=== PATIENT | female | born 1990 | race Caucasian/White ===

== ENCOUNTER 2019-11-17 09:31 | Emergency (ER) | payer BC, OTHER, SELFPAY ==
[2019-11-17 09:36] VITALS: BP 110/51; PULSE 71; RESP 16; TEMP 36.5; O2SAT 99; BMI 20.7
--- NOTE | 2019-11-17 09:37 | USR_ITS ---
PROCEDURE INFORMATION: Exam: US First Trimester, Transabdominal and US , Transvaginal Exam date and time: 11/17/2019 11:04 AM Age: 29 years old Clinical indication: Lmp or gestational age (in weeks): Lmp 11-14-19; Other: Bleeding; ; Additional info: Bleeding, 7 weeks TECHNIQUE: Imaging protocol: Real-time transabdominal obstetrical ultrasound of the maternal pelvis and a first trimester , less than 14 weeks 0 days, with image documentation. Transvaginal imaging was used for better evaluation of the fetus and adnexa. COMPARISON: No relevant prior studies available. FINDINGS: GESTATION: Gestation: There is an intrauterine gestation. Gestational age as measured by crown-rump length is 6 weeks 3 days. No cardiac activity is identified on this exam. Differential diagnosis includes very early intrauterine versus demise. A normal-appearing yolk sac is identified. Right adnexa: There is a 2.2 cm complex right ovarian cyst. Left adnexa: Unremarkable. US/US OB <=14 wk fetus w transvag IMPRESSION: 1. There is an intrauterine gestation. Gestational age as measured by crown-rump length is 6 weeks 3 days. No cardiac activity is identified on this exam. Differential diagnosis includes very early intrauterine versus demise. Followup serial beta hCGs and ultrasound is recommended. 2. There is a 2.2 cm complex right ovarian cyst. Followup imaging is recommended.
--- NOTE | 2019-11-17 09:37 | ED_ITS ---
HPI - General Adult General: Chief complaint: Vaginal Bleeding Stated complaint: 7 weeks and bleeding, patient comes in for spotting starting last night. Patient has had 1 previous with delivery. No reports of previous miscarriage. Patient is tearful on exam. Patient reports that bleeding is light with no clots. Patient did have a little pelvic discomfort last night. Dr. Chang is OB Time Seen by Provider: 11/17/19 09:37 Review of Systems General: Reports: 10 or more systems reviewed and unremarkable except in HPI and below : Reports: vaginal bleeding (light, 7 weeks ) PFSH ED PFSH: Statuses (acute, chronic, etc) shown below reflect problem list status as previously entered and may not be historically accurate Social History Smoking and tobacco status: never smoked Physical Exam Const: COMMON NORMALS: no apparent distress and oriented x3 GENERAL APPEARANCE: cooperative HENMT: COMMON NORMALS: normocephalic, external ears normal, EAC's normal, TM's normal bilaterally and external nose normal HEAD & SCALP: normal to inspection and normocephalic FACE & SINUS: normal facial exam NOSE: external nose normal GENERAL EAR: hearing grossly impaired EXTERNAL EAR: Yes external ears normal EXTERNAL AUDITORY CANAL: EAC's normal TYMPANIC MEMBRANE: TM's normal bilaterally MOUTH: oral and palatal mucosa normal THROAT: posterior oropharynx normal Eye: COMMON NORMALS: PERRL and EOMs intact bilaterally PUPIL: Yes PERRL Neck/C-Spine: COMMON NORMALS: full ROM and no lymphadenopathy Lymph: LYMPHATIC: no lymphedema noted Chest: COMMONS NORMALS: inspection of chest normal and palpation of chest normal Resp: COMMON NORMALS: normal respiratory effort and clear to auscultation bilaterally AUSCULTATION: clear to auscultation bilaterally Cardio: COMMON NORMALS: regular rate and regular rhythm RATE: regular rate RHYTHM: regular rhythm GI: COMMON NORMALS: normal to inspection, nondistended, normoactive bowel sounds and non-tender : COMMON NORMALS: Yes no CVA tenderness BLADDER/KIDNEY EXAM: Yes no CVA tenderness Back/Pelvis: COMMON NORMALS: no CVA tenderness and thoracic and lumbar spine normal to inspection Extremity: COMMON NORMALS: normal to inspection GENERAL: No edema Neuro: COMMON NORMALS: oriented x3, moves all extremities and no focal motor deficits Psych: COMMON NORMALS: mental status grossly normal and cooperative Skin: COMMON NORMALS: no rashes or lesions noted GENERAL SKIN EXAM: no rashes or lesions noted Course Vital Signs: Vital signs: Vital Signs Temperature 97.7 F 11/17/19 09:36 Pulse Rate 65 11/17/19 11:13 Respiratory Rate 26 H 11/17/19 11:13 Blood Pressure 110/48 11/17/19 11:13 Pulse Oximetry 96 11/17/19 11:13 MDM - General Adult MDM Narrative: Medical decision making narrative: Patient comes in today for spotting. Patient appears well. Patient appears in no acute distress. Abdomen soft with some mild tenderness in the pelvic area. Differential diagnosis includes spontaneous , threatened , UTI, renal colic. Urinalysis was clear for infection. CBC CMP were normal. ABO typing was positive. US noted implantation of yolk sac at 6 weeks, no HR noted, may be age related. Reviewed exam with patient recommend follow-up with Dr. Chang for repeat labs and further treatment. Patient reports understanding agreed to plan. Lab Data: Labs: Lab Results 11/17/19 11/17/19 11/17/19 Range/Units 09:49 09:56 09:56 WBC 5.2 (4.0-10.0) 10^3/ uL RBC 4.73 (4.1-5.3) 10^6/u L Hgb 14.3 (11.5-15.3) g/dL Hct 42.8 (37.0-47.0) % MCV 90.5 (81-99) fL MCH 30.2 (28.0-34.0) pg MCHC 33.4 (30.0-36.0) g/dL RDW 11.7 L (12.1-15.1) % Plt Count 227 (130-400) 10^3/c mm MPV 9.8 (7.4-10.4) fL Neut % (Auto) 68.2 % Lymph % (Auto) 22.5 % Hart % (Auto) 6.0 % Eos % (Auto) 2.1 % Baso % (Auto) 0.8 % Neut # (Auto) 3.5 (1.8-7.7) 10^3/u L Lymph # (Auto) 1.2 (0.8-4.8) 10^3/u L Hart # (Auto) 0.3 (0.2-0.9) 10^3/u L Eos # (Auto) 0.1 (0.0-0.8) 10^3/u L Baso # (Auto) 0.0 (0.0-0.1) 10^3/u L Nucleated RBC % (a uto) 0 % Nucleated RBCs # 0.0 /100WBC Sodium 138 (136-145) mmol/L Potassium 3.8 (3.5-5.1) mmol/L Chloride 102 (98-107) mmol/L Carbon Dioxide 26 (22-29) mmol/L Anion Gap 13.8 (5-19) BUN 8 (6-20) mg/dL Creatinine 0.7 (0.5-0.9) mg/dL GFR Calculation 99.6 (90-130) mL/min Glucose 101 (74-109) mg/dL Calcium 10.3 H (8.6-10.0) mg/Dl Total Bilirubin 0.5 (0.15-1.2) mg/dL AST 18 (0-32) U/L ALT 16 (0-33) U/L Alkaline Phosphata se 39 (35-105) IU/L Total Protein 6.9 (6.6-8.7) g/dL Albumin 5.7 H (3.5-5.2) g/dL Globulin 1.2 L (1.3-4.6) g/dL Ser , Chrissie i-Qnt 1719.00 mIU/mL Urine Color Yellow (Yellow) Urine Appearance Clear (CLEAR) Urine pH 7 (5-7) Ur Specific Gravit y 1.005 (1.005-1.030) Urine Protein Neg (Negative) Urine Glucose (UA) Norm (Normal) Urine Ketones Negative (Negative) Urine Occult Blood 3+ H (Negative) Urine Nitrate Negative (Negative) Urine Bilirubin Neg (NEGATIVE) Urine Urobilinogen Norm (Negative) mg/dL Ur Leukocyte Ariana ase Negative (Negative) Urine RBC 10-15 H (0-2) /hpf Urine WBC None (0-5) /hpf Ur Squamous Epith Cells 0-4 H (0-5) Urine Bacteria Trace (NONE) Blood Type 11/17/19 Range/Units 09:56 WBC (4.0-10.0) 10^3/ uL RBC (4.1-5.3) 10^6/u L Hgb (11.5-15.3) g/dL Hct (37.0-47.0) % MCV (81-99) fL MCH (28.0-34.0) pg MCHC (30.0-36.0) g/dL RDW (12.1-15.1) % Plt Count (130-400) 10^3/c mm MPV (7.4-10.4) fL Neut % (Auto) % Lymph % (Auto) % Hart % (Auto) % Eos % (Auto) % Baso % (Auto) % Neut # (Auto) (1.8-7.7) 10^3/u L Lymph # (Auto) (0.8-4.8) 10^3/u L Hart # (Auto) (0.2-0.9) 10^3/u L Eos # (Auto) (0.0-0.8) 10^3/u L Baso # (Auto) (0.0-0.1) 10^3/u L Nucleated RBC % (a uto) % Nucleated RBCs # /100WBC Sodium (136-145) mmol/L Potassium (3.5-5.1) mmol/L Chloride (98-107) mmol/L Carbon Dioxide (22-29) mmol/L Anion Gap (5-19) BUN (6-20) mg/dL Creatinine (0.5-0.9) mg/dL GFR Calculation (90-130) mL/min Glucose (74-109) mg/dL Calcium (8.6-10.0) mg/Dl Total Bilirubin (0.15-1.2) mg/dL AST (0-32) U/L ALT (0-33) U/L Alkaline Phosphata se (35-105) IU/L Total Protein (6.6-8.7) g/dL Albumin (3.5-5.2) g/dL Globulin (1.3-4.6) g/dL Ser , Chrissie i-Qnt mIU/mL Urine Color (Yellow) Urine Appearance (CLEAR) Urine pH (5-7) Ur Specific Gravit y (1.005-1.030) Urine Protein (Negative) Urine Glucose (UA) (Normal) Urine Ketones (Negative) Urine Occult Blood (Negative) Urine Nitrate (Negative) Urine Bilirubin (NEGATIVE) Urine Urobilinogen (Negative) mg/dL Ur Leukocyte Ariana ase (Negative) Urine RBC (0-2) /hpf Urine WBC (0-5) /hpf Ur Squamous Epith Cells (0-5) Urine Bacteria (NONE) Blood Type A Positive Discharge Plan Discharge Patient Disposition: Home, Self-Care Clinical Impression: Threatened Condition: Stable Prescriptions: No Action No Known Home Medications RF: 0 Discharge Orders: Discharge Order (Routine); Ordered 11/17/19 Ordered By: Vincenzo Souza Referrals: Varghese Pineda Jr, MD [Primary Care Provider] - Discharge Diet: Usual diet Discharge Activity: Limit activity as instructed Patient Instructions: Threatened , Abnormal Uterine Bleeding Activity Restrictions/Additional Instructions: Drink plenty of Water Acetaminophen as needed for pain Pelvic rest Follow-up with OB-CODE MACHINE OPERATOR office tomorrow for further treatment Continue vitamin Return to ER for bleeding greater than 1 pad in a hour, high fever, or new concerns Interventions: ED Discharge Assessment Last Done: 11/17/19 11:35 Stand Alone Forms: Work/School Release, Work/Release Restrictions Coding Level of Care Code ED Operating System Designer for Zeusg Fwd Exam Problem Focused
[2019-11-17 09:48] VITALS: BP 110/51; PULSE 63; RESP 17; O2SAT 99
--- NOTE | 2019-11-17 09:54 | PC.NURSE ---
Lab at bedside
[2019-11-17 10:08] LABS: Basophils % 0.8 %; Eosinophils # 0.1 10^3/uL (0.0-0.8); Eosinophils % 2.1 %; Hematocrit 42.8 % (37.0-47.0); Hemoglobin 14.3 g/dL (11.5-15.3); Lymphocytes # 1.2 10^3/uL (0.8-4.8); Lymphocytes % 22.5 %; Mean Corpuscular HGB Conc 33.4 g/dL (30.0-36.0); Mean Corpuscular Hemoglobin 30.2 pg (28.0-34.0); Mean Corpuscular Volume 90.5 fL (81-99); Mean Platelet Volume 9.8 fL (7.4-10.4); Monocytes # 0.3 10^3/uL (0.2-0.9); Neutrophils # 3.5 10^3/uL (1.8-7.7); Neutrophils % 68.2 %; Nucleated Red Blood Cells % 0 %; Platelet Count 227 10^3/cmm (130-400); Red Blood Count 4.73 10^6/uL (4.1-5.3); Red Cell Distribution Width 11.7 % (12.1-15.1); White Blood Count 5.2 10^3/uL (4.0-10.0)
[2019-11-17 10:17] LABS: Bilirubin Urine Neg (NEGATIVE); Blood Urine 3+ (Negative); Glucose Urine UA Norm (Normal); Ketones Urine Negative (Negative); Leukocyte Esterase Urine Negative (Negative); Nitrate Urine Negative (Negative); Protein Urine Neg (Negative); Specific Gravity, Urine 1.005 (1.005-1.030); Urine Appearance Clear (CLEAR); Urine Color Yellow (Yellow); Urobilinogen Urine Norm (Negative); pH Urine 7 (5-7)
[2019-11-17 10:19] LABS: Add Urine Culture? Yes; Bacteria Urine TRACE; Squamous Epithelial Cell Urine 0-4 (0-5)
[2019-11-17 10:34] LABS: Alanine Aminotransferase 16 U/L (0-33); Albumin Level 5.7 g/dL (3.5-5.2); Alkaline Phosphatase 39 IU/L (35-105); Anion Gap 13.8 (5-19); Aspartate Amino Transferase 18 U/L (0-32); Blood Urea Nitrogen 8 mg/dL (6-20); Calcium 10.3 mg/Dl (8.6-10.0); Carbon Dioxide 26 mmol/L (22-29); Chloride 102 mmol/L (98-107); Globulin 1.2 g/dL (1.3-4.6); Glomerular Filtration Rate 99.6 mL/min (90-130); Glucose 101 mg/dL (74-109); Potassium 3.8 mmol/L (3.5-5.1); Sodium 138 mmol/L (136-145); Total Bilirubin 0.5 mg/dL (0.15-1.2); Total Protein 6.9 g/dL (6.6-8.7)
--- NOTE | 2019-11-17 10:38 | PC.NURSE ---
US at bedside
[2019-11-17 11:13] VITALS: BP 110/48; PULSE 65; RESP 26; O2SAT 96
--- NOTE | 2019-11-17 11:15 | PC.NURSE ---
pt tearful at this time
[2019-11-17 11:35] VITALS: BP 110/48; PULSE 60; RESP 17; O2SAT 96
== END 2019-11-17 11:46 | disposition home or self-care (01) ==
PROVIDERS: Emergency Provider Nurse Practitioner Family; Family Provider Family Medicine; PCP Family Medicine
DX: O20.0 Threatened abortion (principal); Z3A.01 Less than 8 weeks gestation of pregnancy
CPT/HCPCS: 36415; 76801; 76817; 80053; 81001; 84702; 85025; 86900; 87086; 99282; A9270

== ENCOUNTER 2019-11-18 13:23 | Outpatient (REF) | payer SELFPAY | END 2019-11-18 13:24 | disposition home or self-care (01) | LOC: LAB 13:23 | PROVIDERS: Family Provider Family Medicine; PCP Family Medicine; Visit Provider Dermatology | DX: O20.0 Threatened abortion (principal) | CPT/HCPCS: 84702 ==

== ENCOUNTER 2020-08-24 15:49 | Outpatient (CLI) | payer BC, SELFPAY ==
--- NOTE | 2020-08-24 16:01 | USCV_ITS ---
Ronna Mcnair Age: 30 Gender: F : 1990 Exam Date: 08/24/2020 15:53 Ordering Phys: Katie Alfred MD Technologist: Brii Clemente [place] [facility] [place]ication: PAIN IN RT LEG PROCEDURES: Venous duplex imaging was performed in only the right lower extremity. The following venous structures were evaluated: common femoral vein, profunda vein, proximal portion of the greater saphenous vein, superficial femoral vein, and the popliteal vein. In addition, the posterior tibial and peroneal trunk were evaluated. Serial compression, augmentation maneuvers, and spectral Doppler flow evaluation were performed. FINDINGS: Normal 2-D Doppler and augmentation and compressibility throughout the lower extremity venous structures. Additional imaging through the proximal calf veins also reveals no thrombus. Limited evaluation of the greater saphenous vein is patent with no thrombus. CONCLUSIONS No DVT right lower extremity. Dr. Dana Magdaleno DO (Electronically Signed) Final Date: 25 August 2020 08:28 S
== END 2020-08-24 15:50 | disposition home or self-care (01) ==
LOC: RAD 15:55
PROVIDERS: PCP Family Medicine; Visit Provider Family Medicine
DX: M79.604 Pain in right leg (principal)
CPT/HCPCS: 93971

== ENCOUNTER → 2024-04-24 14:05 | Outpatient (BNVA) | payer OTHER, SELFPAY | PROVIDERS: PCP Family Medicine; Visit Provider Nurse Practitioner Women's Health | DX: Z12.4 Encounter for screening for malignant neoplasm of cervix (principal); I83.90 Asymptomatic varicose veins of unspecified lower extremity; Z01.419 Encounter for gynecological examination (general) (routine) without abnormal findings | CPT/HCPCS: 87624 ==

== ENCOUNTER → 2024-05-29 07:56 | Outpatient (BNVA) | payer OTHER, SELFPAY | PROVIDERS: PCP Family Medicine; Visit Provider Nurse Practitioner Women's Health | DX: N92.6 Irregular menstruation, unspecified (principal) | CPT/HCPCS: 81025; 84443; 84702 ==

== ENCOUNTER → 2024-06-05 14:18 | Outpatient (BNVA) | payer OTHER, SELFPAY | PROVIDERS: PCP Family Medicine; Visit Provider Nurse Practitioner Women's Health | DX: Z34.90 Encounter for supervision of normal pregnancy, unspecified, unspecified trimester (principal) | CPT/HCPCS: 76801 ==

== ENCOUNTER → 2024-06-19 08:28 | Outpatient (BNVA) | payer OTHER, SELFPAY | PROVIDERS: PCP Family Medicine; Visit Provider Nurse Practitioner Women's Health | DX: Z34.90 Encounter for supervision of normal pregnancy, unspecified, unspecified trimester (principal); Z34.80 Encounter for supervision of other normal pregnancy, unspecified trimester | CPT/HCPCS: 80307; 84315; 85025; 86592; 86762; 86803; 86850; 86900; 87086; 87340; 87806 ==

== ENCOUNTER → 2024-07-03 13:26 | Outpatient (BNVA) | payer OTHER, SELFPAY | PROVIDERS: PCP Family Medicine; Visit Provider Nurse Practitioner Women's Health | DX: O20.8 Other hemorrhage in early pregnancy (principal); Z3A.11 11 weeks gestation of pregnancy | CPT/HCPCS: 76801 ==

== ENCOUNTER → 2024-07-05 07:46 | Outpatient (BNVA) | payer OTHER, SELFPAY | PROVIDERS: PCP Family Medicine; Visit Provider Obstetrics & Gynecology | DX: Z34.80 Encounter for supervision of other normal pregnancy, unspecified trimester (principal) | CPT/HCPCS: 84315; 87340; 87491; 87591 ==

== ENCOUNTER → 2024-07-10 10:01 | Outpatient (BNVA) | payer OTHER, SELFPAY | PROVIDERS: PCP Family Medicine; Visit Provider Nurse Practitioner Women's Health | DX: O36.80X0 Pregnancy with inconclusive fetal viability, not applicable or unspecified (principal); O20.8 Other hemorrhage in early pregnancy; Z3A.13 13 weeks gestation of pregnancy | CPT/HCPCS: 76801 ==

== ENCOUNTER → 2024-07-29 15:19 | Outpatient (BNVA) | payer OTHER, SELFPAY | PROVIDERS: PCP Family Medicine; Visit Provider Obstetrics & Gynecology | DX: O20.8 Other hemorrhage in early pregnancy (principal); O45.8X2 Other premature separation of placenta, second trimester; Z3A.16 16 weeks gestation of pregnancy | CPT/HCPCS: 76815 ==

== ENCOUNTER → 2024-09-25 14:14 | Outpatient (BNVA) | payer OTHER, SELFPAY | PROVIDERS: PCP Family Medicine; Visit Provider Nurse Practitioner Women's Health | DX: O45.92 Premature separation of placenta, unspecified, second trimester (principal) | CPT/HCPCS: 76817; 82950; 84315 ==

== ENCOUNTER → 2024-10-01 08:05 | Outpatient (BNVA) | payer OTHER, SELFPAY | PROVIDERS: PCP Family Medicine; Visit Provider Nurse Practitioner Women's Health | DX: Z34.80 Encounter for supervision of other normal pregnancy, unspecified trimester | CPT/HCPCS: 82951; 82952 ==

== ENCOUNTER → 2024-10-24 08:40 | Outpatient (BNVA) | payer OTHER, SELFPAY | PROVIDERS: PCP Family Medicine; Visit Provider Obstetrics & Gynecology | DX: Z34.80 Encounter for supervision of other normal pregnancy, unspecified trimester (principal) | CPT/HCPCS: 84315; 85025 ==

== ENCOUNTER → 2024-11-19 08:10 | Outpatient (BNVA) | payer OTHER, SELFPAY | PROVIDERS: PCP Family Medicine; Visit Provider Nurse Practitioner Women's Health | DX: O41.8X90 Other specified disorders of amniotic fluid and membranes, unspecified trimester, not applicable or unspecified (principal); O46.8X9 Other antepartum hemorrhage, unspecified trimester; Z3A.00 Weeks of gestation of pregnancy not specified | CPT/HCPCS: 84315 ==

== ENCOUNTER → 2024-12-02 16:45 | Outpatient (BNVA) | payer OTHER, SELFPAY | PROVIDERS: PCP Family Medicine; Visit Provider Obstetrics & Gynecology | DX: Z34.80 Encounter for supervision of other normal pregnancy, unspecified trimester (principal) | CPT/HCPCS: 84315 ==

== ENCOUNTER → 2024-12-16 15:21 | Outpatient (BNVA) | payer OTHER, SELFPAY | PROVIDERS: PCP Family Medicine; Visit Provider Obstetrics & Gynecology | DX: Z34.83 Encounter for supervision of other normal pregnancy, third trimester (principal) | CPT/HCPCS: 76816 ==

== ENCOUNTER → 2024-12-19 08:17 | Outpatient (BNVA) | payer OTHER, SELFPAY | PROVIDERS: PCP Family Medicine; Visit Provider Obstetrics & Gynecology | DX: Z34.83 Encounter for supervision of other normal pregnancy, third trimester (principal) | CPT/HCPCS: 84315; 87081 ==

== ENCOUNTER → 2024-12-26 10:08 | Outpatient (BNVA) | payer OTHER, SELFPAY | PROVIDERS: PCP Family Medicine; Visit Provider Nurse Practitioner Women's Health | DX: Z34.80 Encounter for supervision of other normal pregnancy, unspecified trimester (principal) | CPT/HCPCS: 84315 ==

== ENCOUNTER → 2025-01-02 08:30 | Outpatient (BNVA) | payer OTHER, SELFPAY | PROVIDERS: PCP Family Medicine; Visit Provider Obstetrics & Gynecology | DX: Z34.80 Encounter for supervision of other normal pregnancy, unspecified trimester (principal) | CPT/HCPCS: 84315 ==

== ENCOUNTER → 2025-01-09 08:32 | Outpatient (BNVA) | payer OTHER, SELFPAY | PROVIDERS: PCP Family Medicine; Visit Provider Obstetrics & Gynecology | DX: Z34.80 Encounter for supervision of other normal pregnancy, unspecified trimester (principal) | CPT/HCPCS: 84315 ==

== ENCOUNTER 2025-01-11 00:30 | Inpatient (IN) | payer OTHER, SELFPAY ==
[2025-01-10 22:42] VITALS: BMI 28.3
[2025-01-10 23:02] VITALS: RESP 16
[2025-01-10 23:14] VITALS: BP 118/64; PULSE 77
[2025-01-10 23:29] VITALS: BP 115/58; PULSE 68
[2025-01-10 23:43] VITALS: BP 112/68; PULSE 75
[2025-01-11] VITALS (46 sets, daily range): BP systolic 88–134; BP diastolic 50–78; PULSE 62–104; RESP 15–18; TEMP 36.6–36.8; O2SAT 89–100
[2025-01-11] MEDS: sodium chloride 0.9% 1,000 ML 999 ML IV ×2 (00:30→11:47)
[2025-01-11 00:49] LABS: Basophils % 0.4 %; Eosinophils # 0.1 10^3/uL (0.0-0.8); Eosinophils % 1.2 %; Hematocrit 36.9 % (36-47); Lymphocytes # 1.5 10^3/uL (0.8-4.8); Lymphocytes % 17.1 %; Mean Corpuscular HGB Conc 35.5 g/dL (30-55); Mean Corpuscular Hemoglobin 31.6 pg (27-33); Mean Corpuscular Volume 89.1 fl (85-98); Mean Platelet Volume 9.8 fL (7.4-10.4); Monocytes # 0.6 10^3/uL (0.2-0.9); Monocytes % 7.1 %; Neutrophils # 6.28 10^3/uL (1.8-7.7); Neutrophils % 73.5 %; Nucleated Red Blood Cells % 0 %; Platelet Count 191 10^3/cmm (157-399); Red Blood Count 4.14 10^6/uL (3.85-5.65); Red Cell Distribution Width 12.6 % (12.1-15.1); White Blood Count 8.54 10^3/uL (3.29-11.43)
--- NOTE | 2025-01-11 01:16 | P.ANESASSM_ITS ---
Pre-Anesthetic Assessment Height/Weight: Height 1.65 m Weight 77.111 kg Pulse Resp BP Pulse Ox O2 Del Method 104 H 16 125/59 99 Room Air 01/11/25 01:30 01/10/25 23:02 01/11/25 01:30 01/11/25 01:27 01/11/25 00:38 Preop Diagnosis: IUP labor epidural Familial anesthetic complications: none Was Beta Purnima taken within 24 hours: N/A Was Clonidine taken within 24 hours: N/A Last Intake: 18:00 Social No alcohol and No tobacco Exam alert and oriented x 3 Airway Submandibular: within normal limits Cervical ROM: within normal limits Mallampati: Class I Dentition: full History/ROS No significant history except as noted Pulmonary None reported CV/HEM None reported None reported Hepatic None reported GI None reported Metabolic None reported Musc/skel None reported Neuropsych None reported Anesthetic Plan ASA status: 2 Anesthesia: Anesthesia Evaluation and Regional (specify below) Medications/Allergies Home Medications ?Medication ?Instructions ?Recorded ?Confirmed ?Last Taken ?Type docosahexaenoic acid 200 mg 200 mg PO DAILY 05/29/24 0 01/10/25 01/10/25 History capsule ( DHA) breast pump #1 ea 09/25/24 01/09/25 Unkn own Rx Allergies Allergy/AdvReac Type Severity Reaction Status Date / Time No Known Drug Allergies Allergy Unknown Verified 01/10/25 23:04 Current Medications Generic Name Dose Route Start Last Admin Trade Name Freq PRN Reason Stop Dose Admin Sodium Chloride 1,000 mls @ 999 mls/hr 01/11/25 00:01 01/11/25 00:30 Sodium Chloride 0.9% IV 999 mls/hr .Q1H1M PRN Administration See label comments [facility] Anesthesia Medical History No pertinent past medical history neghx: htn,dm,thyroid,dvt/pe PCP: Katie Alfred Surgical History S/P ACL repair History of tonsillectomy and adenoidectomy History of medial meniscus repair of right knee S/P medial meniscus repair of left knee Family History Grandmother Diabetes Denies family history of Colon cancer Ovarian cancer Prostate cancer Heart disease Hyperthyroidism Hypothyroidism Breast cancer Uterine cancer Thyroid disease Stroke Social History Smoking and tobacco/nicotine status: never used tobacco/nicotine Female Reproductive History : 4 Data Anesthesia 01/11/25 00:25 Short CBC 01/11/25 Range/Units 00:25 WBC 8.54 (3.29-11.43) 10^3/uL Hgb 13.10 (11.27-16.99) g/dL Hct 36.9 (36-47) % MCV 89.1 (85-98) fl Plt Count 191 (157-399) 10^3/cmm Neut % (Auto) 73.5 % Neut # (Auto) 6.28 (1.8-7.7) 10^3/uL Blood Bank 01/11/25 00:25 Blood Type A Positive Rho(D) Type Rh positive Antibody Screen Negative Cardiac Studies: 2 No Data to Display
[2025-01-11] MEDS: ROPivacaine syringe 100 MG/50 ML SYRINGE 13 MG EPIDURAL (01:32)
--- NOTE | 2025-01-11 01:35 | ANES.PROC ---
Anesthesia Procedures Procedure/Date: 01/11/25 Epidural: Time Out Performed: Yes Consents Signed: Procedure Consent Consent: from patient, risks and benefits reviewed and patient agrees to proceed Lumbar Level: L3-L4 Epidural position: sitting Epidural procedure: sterile prep of area, 1% lidocaine to numb the area, 18 g needle, negative for paresthesia passed, test dose given, 1.5% xylocaine 1:200k epi, placed PCEA, no systemic response, sterile dressing applied, L.U.D. no apparent complications and 0.2% Ropiavacaine @ mls/hr (13) Additional Comments: ROXANA at 4, negative heme/CSF upon aspiration. taped at 11 at skin. tolerated well.
--- NOTE | 2025-01-11 02:10 | PM.OBGYHP ---
Providers/Chief Complaint Admitting Physician: Raúl Salinas MD Primary SURVEY RESEARCH PROFESSOR: Madi Godoy MD Primary Care Provider: Katie Alfred MD Chief Complaint: possible contractions HPI SURVEY RESEARCH PROFESSOR History of Present Illness Ronna Mcnair is a 34 year old female A1 EDC January 14, 2025 At 39 w 4 d No complications h/o x two presents to L&D c/o painful uterine contractions no bleeding or fluid leakage + active movements Present Details : 4 Para: 2 Labs Rubella: Immune RPR: Negative GBS: Negative Medications/Allergies Home Medications ?Medication ?Instructions ?Recorded ?Confirmed ?Last Taken ?Type docosahexaenoic acid 200 mg 200 mg PO DAILY 05/29/24 01/10/25 01/10/25 History capsule ( DHA) breast pump #1 ea 09/25/24 01/11/25 Unknown Rx oxycodone-acetaminophen 5 mg-325 1 tab PO BID PRN pain #10 tabs 01/12/25 Unknown Rx mg tablet (Percocet) Allergies Allergy/AdvReac Type Severity Reaction Status Date / Time No Known Drug Allergies Allergy Unknown Verified 01/10/25 23:04 PFSH SURVEY RESEARCH PROFESSOR PFSH: Medical History No pertinent past medical history neghx: htn,dm,thyroid,dvt/pe PCP: Katie Alfred Surgical History S/P ACL repair History of tonsillectomy and adenoidectomy History of medial meniscus repair of right knee S/P medial meniscus repair of left knee Family History Grandmother Diabetes Denies family history of Colon cancer Ovarian cancer Prostate cancer Heart disease Hyperthyroidism Hypothyroidism Breast cancer Uterine cancer Thyroid disease Stroke Social History Smoking and tobacco/nicotine status: never used tobacco/nicotine History History History 4 Term 2 0 Miscarriages/Ectopic 1 Living Children 2 Care SAM Calculator Estimated Delivery Date Method Current WG Current Estimate 01/14/25 LMP (Certain) 39w 5d Other Estimates 01/15/25 Ultrasound #1 39w 4d Specific Issues/Plans SUBCHORIONIC BLEED - resolved Vitals/I&O/Wt Last Vital Signs Temp 98.0 F 01/12/25 13:00 Pulse 74 01/12/25 13:00 Resp 16 01/12/25 13:00 BP 97/57 01/12/25 13:00 Pulse Ox 99 01/12/25 13:00 O2 Del Method Room Air 01/12/25 04:25 Weight last 48 hrs Weight 170 lb Physical Exam Narrative: Weight 180 lbs; 5?10? General comfortable, awake, alert VS normal Lungs: clear Cor: RRR Cervix: 7 cm / 75 / -2 / cephalic Ext: no edema External monitor: heart tracing good variability, + accelerations Urinary Catheter Management: Dowling: Cath Placed During This Visit: yes, but has since been removed by the nurse Reason for Continuing Indwelling Catheter: Decision to DC Catheter Urinary Catheter Date of Insertion: 01/11/25 Urinary Catheter Time of Insertion: 02:14 Date Urinary Catheter Removed: 01/11/25 Time Urinary Catheter Discontinued: 02:48 Data 01/11/25 17:56 Results Labs OB ([facility]): Obstetrics US 12/16/24 Blood Type A Positive 01/11/25 Antibody Screen Negative 01/11/25 Hct 32.1 % (36-47) L 01/11/25 Hgb 11.20 g/dL (11.27-16.99) L 01/11/25 Rho(D) Type Rh positive 01/11/25 Plt Count 146 10^3/cmm (157-399) L 01/11/25 Hep Bs Antigen Non-reactive (Nonreactive) 07/05/24 Hepatitis C Antibody Non-reactive (Nonreactive) 06/19/24 Rubella IgG Antibody 10.7 IU/mL (0.0-10.0) H 06/19/24 RPR Nonreactive (Nonreactive) 06/19/24 HIV 1&2 Ab & HIV 1 Ag Non-reactive (Non-Reactiv) 06/19/24 TSH 1.74 uIU/mL (0.27-4.20) 05/29/24 C.trachomatis RNA (TMA) Not detected (NOT DETECTED) 07/05/24 N.gonorrhoeae RNA (TMA) Not detected (NOT DETECTED) 07/05/24 T. vaginalis Amp RNA Not detected (NOT DETECTED) 07/05/24 Chlamydia/GC Comment See note 07/05/24 Cystic Fibrosis Screen Negative 06/19/24 Glucose 1 Hr 50 gm 160 mg/dL (85-140) H 09/25/24 Gest Glucose Tolerance mg/dL 10/01/24 Ser , Semi-Qnt 21064.00 mIU/mL 05/29/24 HCG, Qual Positive (Negative) H 05/29/24 Urine Opiates Screen Negative ng/mL (Negative) 06/19/24 Ur Barbiturates Screen Negative ng/mL (Negative) 06/19/24 Ur Phencyclidine Scrn Negative ng/mL (Negative) 06/19/24 Ur Amphetamines Screen Negative ng/mL (Negative) 06/19/24 U Benzodiazepines Scrn Negative ng/mL (Negative) 06/19/24 Urine Cocaine Screen Negative ng/mL (Negative) 06/19/24 U Marijuana (THC) Screen Negative ng/mL (Negative) 06/19/24 Micro Urine Specimen 06/19/24 Pap Smear Interpret See note 04/24/24 A&P Assessment and plan (1) Active labor at term: 39 w 4 d Fetus reassuring GBS negative Active labor Plan admit for labor management PDMP PDMP Reviewed: Last Reviewed 01/12/25 13:26 EST by Raúl Salinas MD Attestations Medical Necessity Statement*: patient at 39 w 4 d with active labor Coding Level of Care Code Acute Code for Chg Fwd Diagnoses Active labor at term Time Spent (min) 60
[2025-01-11] MEDS: oxytocin 30 UNIT/500 ML BAG 600 UNIT IV (02:56)
--- NOTE | 2025-01-11 03:20 | PM.DELIVERY ---
Delivery Note: Date of delivery: January 11, 2025 Pre-delivery diagnoses: 39 w 4 d active labor Post-delivery diagnoses: 39 w 4 d active labor vaginal delivery second-degree perineal and right vaginal lacerations repaired Procedure: vaginal delivery repair of second-degree perineal and right vaginal lacerations Op report anesthesia: Epidural Delivering Physician: Raúl Salinas MD Estimated blood loss (mL): 300 Findings: , vigorous Cord gases and blood obtained Normal placenta and cord Second-degree perineal laceration and right vaginal laceration repaired EBL: 300 cc No complications Pre-Delivery Course: normal labor course fetus reassuring throughout Delivery: vaginal Post-Delivery Status: good History History History 4 Term 2 0 Miscarriages/Ectopic 1 Living Children 2 A&P Assessment and plan (1) Vaginal delivery: PDMP PDMP Reviewed: Last Reviewed 01/12/25 13:26 EST by Raúl Salinas MD Coding Level of Care Code Acute Code for Chg Fwd Diagnoses Vaginal delivery O80 Time Spent (min) 60
[2025-01-11] MEDS: HYDROcodone-acetaminophen 5-325 mg Tablet PO ×3 (04:33→21:25)
[2025-01-11] MEDS: benzocaine-menthol 78 gm Canister 1 SPRAY TOPICAL (05:38)
[2025-01-11] MEDS: lanolin oint 7 gm 1 APPLIC TOPICAL (05:39)
[2025-01-11] MEDS: famotidine 20 mg/2 mL INJ IVP (11:47)
[2025-01-11] MEDS: citric acid-sodium citrate 30 mL UDC PO (11:47)
[2025-01-11] MEDS: metoclopramide 5 mg/mL SDV 2 mL 10 MG IVP (11:48)
--- NOTE | 2025-01-11 11:58 | P.ANESASSM_ITS ---
Pre-Anesthetic Assessment Height/Weight: Height 5 ft 5 in Weight 170 lb Temp Pulse Resp BP Pulse Ox O2 Del Method 98.1 F 79 18 110/70 97 Room Air 01/11/25 08:00 01/11/25 09:00 01/11/25 09:00 01/11/25 09:00 01/11/25 06:45 01/11/25 09:00 Preop Diagnosis: Request for sterilization Operation Date: 01/11/25 13:10 Proposed Procedures p Post Bilateral Tubal Ligation(Bilateral) - Raúl Salinas MD Was Beta Purnima taken within 24 hours: N/A Was Clonidine taken within 24 hours: N/A Social No alcohol and No tobacco Exam alert, oriented x 3, clear to auscultation bilaterally and regular rate & rhythm Airway Submandibular: within normal limits Cervical ROM: within normal limits Mallampati: Class I Dentition: full Anesthetic Plan ASA status: 2 Anesthesia: General Other: Healthy, G3, P3. Delivered vaginally this a.m. without issues. Epidural catheter has since been removed No prior issues with anesthesia NPO since 4 AM Denies any cardiac or pulmonary issues Labs reviewed and acceptable for procedure METs greater than 4 Plan for general anesthetic Medications/Allergies Home Medications ?Medication ?Instructions ?Recorded ?Confirmed ?Last Taken ?Type docosahexaenoic acid 200 mg 200 mg PO DAILY 05/29/24 0 01/10/25 01/10/25 History capsule ( DHA) breast pump #1 ea 09/25/24 01/11/25 Unkn own Rx Allergies Allergy/AdvReac Type Severity Reaction Status Date / Time No Known Drug Allergies Allergy Unknown Verified 01/10/25 23:04 Current Medications Generic Name Dose Route Start Last Admin Trade Name Freq PRN Reason Stop Dose Admin Hydrocodone Bitart/Acetaminophen 1 - 2 tab 01/11/25 03:41 01/11/25 04:33 Hydrocodone-Acetaminophen 5-325 Mg Tablet PO 2 tab Q6H PRN Administration MODERATE TO SEVERE PAIN Benzocaine 1 spray 01/11/25 03:41 01/11/25 05:38 Benzocaine-Menthol 78 Gm Canister TOPICAL 1 spray PRN PRN Administration PAIN Docusate Sodium 100 mg 01/11/25 09:00 01/11/25 09:36 Docusate Sodium 100 Mg Capsule PO Not Given BID SHIVANI Ibuprofen 800 mg 01/11/25 09:00 01/11/25 09:36 Ibuprofen 800 Mg Tablet PO Not Given TID SHIVANI Lanolin 1 applic 01/11/25 03:41 01/11/25 05:39 Lanolin Oint 7 Gm TOPICAL 1 applic PRN PRN Administration DRYNESS Prenat Multivit/Transportation Planner/Iron/Folic Ac 1 each 01/11/25 09:00 01/11/25 09:36 Vit No.130/Iron/Folic 1 Each Tablet PO Not Given DAILY SHIVANI PFSH Anesthesia Medical History No pertinent past medical history neghx: htn,dm,thyroid,dvt/pe PCP: Katie Alfred Surgical History S/P ACL repair History of tonsillectomy and adenoidectomy History of medial meniscus repair of right knee S/P medial meniscus repair of left knee Family History Grandmother Diabetes Denies family history of Colon cancer Ovarian cancer Prostate cancer Heart disease Hyperthyroidism Hypothyroidism Breast cancer Uterine cancer Thyroid disease Stroke Social History Smoking and tobacco/nicotine status: never used tobacco/nicotine Female Reproductive History : 4 Data Anesthesia 01/11/25 00:25 Short CBC 01/11/25 Range/Units 00:25 WBC 8.54 (3.29-11.43) 10^3/uL Hgb 13.10 (11.27-16.99) g/dL Hct 36.9 (36-47) % MCV 89.1 (85-98) fl Plt Count 191 (157-399) 10^3/cmm Neut % (Auto) 73.5 % Neut # (Auto) 6.28 (1.8-7.7) 10^3/uL Blood Bank 01/11/25 00:25 Blood Type A Positive Rho(D) Type Rh positive Antibody Screen Negative Cardiac Studies: 2 No Data to Display
--- NOTE | 2025-01-11 12:30 | P.PN_ITS ---
INDUSTRY SEGMENT SPECIALIST Subjective 2 Subjective: Interval history: Patient wants permanent sterilization Refuses reversible control Understands irreversibility of procedure Plan bilateral salpingectomy Procedure and risks explained Risks include, but not limited to, infection, bleeding, injury to internal organs, anesthesia, Blood transfusions Patient understands and wants to proceed Labor: Station: 0 Amniotic Membrane Status: Ruptured Monitor Mode: External Contraction Pattern: Regular Vitals/I&O/Wt Last Vital Signs Temp 98.0 F 01/12/25 13:00 Pulse 74 01/12/25 13:00 Resp 16 01/12/25 13:00 BP 97/57 01/12/25 13:00 Pulse Ox 99 01/12/25 13:00 O2 Del Method Room Air 01/12/25 04:25 Weight last 48 hrs Weight 170 lb Physical Exam 2 Urinary Catheter Management: Dowling: Cath Placed During This Visit: yes, but has since been removed by the nurse Reason for Continuing Indwelling Catheter: Decision to DC Catheter Urinary Catheter Date of Insertion: 01/11/25 Urinary Catheter Time of Insertion: 02:14 Date Urinary Catheter Removed: 01/11/25 Time Urinary Catheter Discontinued: 02:48 Data 01/11/25 17:56 A&P Assessment and plan (1) Request for sterilization: PDMP PDMP Reviewed: Last Reviewed 01/12/25 13:26 EST by Raúl Salinas MD Attestations 2 Medical Necessity Statement*: patient s/p vaginal delivery, desires permanent sterilization Coding Level of Care Code Acute Code for Chg Fwd Diagnoses Request for sterilization Z30.2 Time Spent (min) 20
--- NOTE | 2025-01-11 13:15 | ANE.PACU2 ---
Inpatient post-anesthesia follow up: Airway intact: Yes Vital signs: Temperature 98.0 F Pulse Rate 74 Respiratory Rate 16 Blood Pressure 97/57 Pulse Oximetry 99 Oxygen Delivery Me thod Room Air Oxygen Flow Rate Fraction of Inspir ed Oxygen Hydration adequate: Yes Nausea and vomiting: No Pain level: 1 Mental status: Baseline
--- NOTE | 2025-01-11 14:05 | PM.OP ---
Operative Report Date of procedure: January 11, 2025 Pre-op diagnosis: vaginal delivery desires permanent sterilization Post-op diagnosis: same Post-op findings: normal fallopian tubes Procedure done: bilateral salpingectomy Implants: none Specimens removed/disposition: bilateral fallopian tubes, sent to pathology Surgeon: Raúl Salinas MD Anesthesia: General Estimated blood loss (mL): 10 Complications: none Findings: normal fallopian tubes Condition: stable Disposition: floor Brief History: 34 y.o. A1 desires permanent sterilization Procedure: Informed consent signed The patient was taken to the operating room and placed supine on the table. General anesthesia was induced. The abdomen was prepped and draped in the usual fashion. A subumbilical skin incision was made and carried through the fasica. The peritoneal cavity was entered. The left fallopian tube was identified to its fimbrial end. A Ligasure device was used to excise the fallopian tube by coagulating and cutting the mesosalpinx. No bleeding was seen. The right fallopian tube was similarly identified to its fimbrial end. The Ligasure device was used to excise the right fallopian tube by coagulating and cutting the mesosalpinx. No bleeding was seen. The fascia was then closed with a continuous stitch of O-Vicryl. The subcutaneous tissue was irrigated and inspected for hemostasis. The skin was then reapproximated using a subcuticular stitch of 4-O vicryl. Postoperative condition stable Disposition to floor Estimated blood loss 10 cc, no replacement Sponge, needle, and instrument counts were correct x two There were no complications
--- NOTE | 2025-01-11 17:16 | ANE.PACU2 ---
Inpatient post-anesthesia follow up: Airway intact: Yes Vital signs: Temperature 98.0 F Pulse Rate 74 Respiratory Rate 16 Blood Pressure 97/57 Pulse Oximetry 99 Oxygen Delivery Me thod Room Air Oxygen Flow Rate Fraction of Inspir ed Oxygen Hydration adequate: Yes Nausea and vomiting: No Pain level: 1 Mental status: Baseline Epidural Start/End: Epidural Start Date: 01/11/25 Epidural Start Time: 01:16 Epidural End Date: 01/11/25 Epidural End Time: 06:49
[2025-01-11 18:17] LABS: Hematocrit 32.1 % (36-47); Mean Corpuscular HGB Conc 34.9 g/dL (30-55); Mean Corpuscular Hemoglobin 32.3 pg (27-33); Mean Corpuscular Volume 92.5 fl (85-98); Mean Platelet Volume 9.7 fL (7.4-10.4); Platelet Count 146 10^3/cmm (157-399); Red Blood Count 3.47 10^6/uL (3.85-5.65); White Blood Count 12.99 10^3/uL (3.29-11.43)
[2025-01-11] MEDS: ibuprofen 800 mg tablet PO (20:17)
[2025-01-11] MEDS: docusate sodium 100 mg Capsule PO (20:17)
[2025-01-12 04:25] VITALS: BP 101/65; PULSE 63; RESP 16; TEMP 37.5; O2SAT 96
[2025-01-12] MEDS: PRENATAL VIT NO.130/IRON/FOLIC 1 EACH TABLET PO (10:13)
[2025-01-12] MEDS: ibuprofen 800 mg tablet PO (10:14)
[2025-01-12] MEDS: docusate sodium 100 mg Capsule PO (10:14)
[2025-01-12 13:00] VITALS: BP 97/57; PULSE 74; RESP 16; TEMP 36.7; O2SAT 99
--- NOTE | 2025-01-12 14:30 | PM.OBGYDC ---
Discharge Providers [employer] CLAIM INVESTIGATOR Date of Admission: 01/11/25 00:30 Date of Discharge: 01/12/25 Attending Provider at Admission: Raúl Salinas MD Attending Provider at Discharge: Raúl Salinas MD Consults: none Primary F[employer]IGHT CLAIM INVESTIGATOR: Madi Godoy MD Primary Care Provider: Katie Alfred MD Diagnoses at Discharge Discharge Diagnosis (1) Request for sterilization: Details from hospital stay: 34 y.o. A1 at 39 w 4 d no complications patient presented with active labor cervix was 7 cm on admission fetus was reassuring patient progressed to complete dilatation delivered vaginally with repair of second-degree perineal and right vaginal lacerations patient desires permanent sterilization; refuses reversible types of control bilateral salpingectomy was performed without any complications patient did well and was discharged to home on the first day Status: Acute Reason for Visit Reason for Visit: possible contractions Brief History: 34 y.o. A1 at 39 w 4 d no complications patient presented with active labor Hospital Course Hospital Course 34 y.o. A1 at 39 w 4 d no complications patient presented with active labor cervix was 7 cm on admission fetus was reassuring patient progressed to complete dilatation delivered vaginally with repair of second-degree perineal and right vaginal lacerations patient desires permanent sterilization; refuses reversible types of control bilateral salpingectomy was performed without any complications patient did well and was discharged to home on the first day Information Peripartum Data: Infant Delivery Method: Vaginal Laceration description: Perineal - 2nd Degree Episiotomy description: None complications: none Additional Peripartum Information: bilateral salpingectomy performed Physical Exam Narrative: afebrile, VS normal comfortable, awake, alert Abd: soft, nontender. Subumbilical wound clean and dry Ext: no edema; nontender Urinary Catheter Management: [place]: Cath Placed During This Visit: yes, but has since been removed by the nurse Reason for Continuing Indwelling Catheter: Decision to DC Catheter Urinary Catheter Date of Insertion: 01/11/25 Urinary Catheter Time of Insertion: 02:14 Date Urinary Catheter Removed: 01/11/25 Time Urinary Catheter Discontinued: 02:48 History History History 4 Term 2 0 Miscarriages/Ectopic 1 Living Children 2 Discharge Data Studies Completed and Pending Pending at discharge Category Date Time Status Pathology: Surgical [PTH] Routine Pth 01/11/25 13:25 Ordered Laboratory Results WBC 12.99 10^3/uL (3.29-11.43) H 01/11/25 17:56 RBC 3.47 10^6/uL (3.85-5.65) L 01/11/25 17:56 Hgb 11.20 g/dL (11.27-16.99) L 01/11/25 17:56 Hct 32.1 % (36-47) L 01/11/25 17:56 MCV 92.5 fl (85-98) 01/11/25 17:56 MCH 32.3 pg (27-33) 01/11/25 17:56 MCHC 34.9 g/dL (30-55) 01/11/25 17:56 RDW 13.0 % (12.1-15.1) 01/11/25 17:56 Plt Count 146 10^3/cmm (157-399) L 01/11/25 17:56 MPV 9.7 fL (7.4-10.4) 01/11/25 17:56 Neut % (Auto) 73.5 % 01/11/25 00:25 Lymph % (Auto) 17.1 % 01/11/25 00:25 [place] % (Auto) 7.1 % 01/11/25 00:25 Eos % (Auto) 1.2 % 01/11/25 00:25 Baso % (Auto) 0.4 % 01/11/25 00:25 Neut # (Auto) 6.28 10^3/uL (1.8-7.7) 01/11/25 00:25 Lymph # (Auto) 1.5 10^3/uL (0.8-4.8) 01/11/25 00:25 [place] # (Auto) 0.6 10^3/uL (0.2-0.9) 01/11/25 00:25 Eos # (Auto) 0.1 10^3/uL (0.0-0.8) 01/11/25 00:25 Baso # (Auto) 0.0 10^3/uL (0.0-0.1) 01/11/25 00:25 Nucleated RBC % (auto) 0 % 01/11/25 00:25 Nucleated RBCs # 0.0 /100WBC 01/11/25 00:25 Blood Type A Positive 01/11/25 00:25 Rho(D) Type Rh positive 01/11/25 00:25 Antibody Screen Negative 01/11/25 00:25 Procedures Performed vaginal delivery repair of second-degree perineal and right vaginal lacerations bilateral salpingectomy Vitals Last Vital Signs Temp 98.0 F 01/12/25 13:00 Pulse 74 01/12/25 13:00 Resp 16 01/12/25 13:00 BP 97/57 01/12/25 13:00 Pulse Ox 99 01/12/25 13:00 O2 Del Method Room Air 01/12/25 04:25 Results Labs OB ([facility]): Obstetrics US 12/16/24 Blood Type A Positive 01/11/25 Antibody Screen Negative 01/11/25 Hct 32.1 % (36-47) L 01/11/25 Hgb 11.20 g/dL (11.27-16.99) L 01/11/25 Rho(D) Type Rh positive 01/11/25 Plt Count 146 10^3/cmm (157-399) L 01/11/25 Hep Bs Antigen Non-reactive (Nonreactive) 07/05/24 Hepatitis C Antibody Non-reactive (Nonreactive) 06/19/24 Rubella IgG Antibody 10.7 IU/mL (0.0-10.0) H 06/19/24 RPR Nonreactive (Nonreactive) 06/19/24 HIV 1&2 Ab & HIV 1 Ag Non-reactive (Non-Reactiv) 06/19/24 TSH 1.74 uIU/mL (0.27-4.20) 05/29/24 C.trachomatis RNA (TMA) Not detected (NOT DETECTED) 07/05/24 N.gonorrhoeae RNA (TMA) Not detected (NOT DETECTED) 07/05/24 T. vaginalis Amp RNA Not detected (NOT DETECTED) 07/05/24 Chlamydia/GC Comment See note 07/05/24 Cystic Fibrosis Screen Negative 06/19/24 Glucose 1 Hr 50 gm 160 mg/dL (85-140) H 09/25/24 Gest Glucose Tolerance mg/dL 10/01/24 Ser , Semi-Qnt 92078.00 mIU/mL 05/29/24 HCG, Qual Positive (Negative) H 05/29/24 Urine Opiates Screen Negative ng/mL (Negative) 06/19/24 Ur Barbiturates Screen Negative ng/mL (Negative) 06/19/24 Ur Phencyclidine Scrn Negative ng/mL (Negative) 06/19/24 Ur Amphetamines Screen Negative ng/mL (Negative) 06/19/24 U Benzodiazepines Scrn Negative ng/mL (Negative) 06/19/24 Urine Cocaine Screen Negative ng/mL (Negative) 06/19/24 U Marijuana (THC) Screen Negative ng/mL (Negative) 06/19/24 Micro Urine Specimen 06/19/24 Pap Smear Interpret See note 04/24/24 Discharge Plan Discharge Patient Disposition: Home Condition: Stable Prescriptions: New oxycodone-acetaminophen [Percocet] 5-325 mg tablet 1 tab PO BID PRN (Reason: pain) Qty: 10 0RF Continued DHA 200 mg capsule 200 mg PO DAILY (DME) breast pump Device See Rx Instructions .ROUTE .MEDSUPPLY Qty: 1 0RF Rx Instructions: As directed-- dual electric breast pump Discharge Orders: Discharge Order (Routine); Ordered 01/12/25 Ordered By: Raúl Salinas Discharge Diet: Usual diet Discharge Activity: Increase activity as tolerated Patient Instructions: Depression (GEN), Preeclampsia and Eclampsia After Delivery (GEN), Hemorrhage (GEN), OB D&C - [facility], OB Discharge Report, OB Food/Drug Interaction Guide, OB Home Care Instructions, OB Care at Home, Opioid Safety, OB Vaginal Deliveries - [facility] Discharge Attestations [employer]IGHT CLAIM INVESTIGATOR Time Spent in Discharge Care*: less than 30 min Coding Level of Care Code Acute Code for Chg Fwd Diagnoses Request for sterilization Z30.2
== END 2025-01-12 13:05 | disposition home or self-care (01) | DRG 798 ==
LOC: OPOB 00:31 → OBGYN 00:31
PROVIDERS: Admitting Provider Obstetrics & Gynecology; PCP Family Medicine; Visit Provider Obstetrics & Gynecology
PROC: 10E0XZZ Delivery of Products of Conception, External Approach (ICD-10-PCS; CPT 58605; principal; 2025-01-11 13:00)
DX: O70.1 Second degree perineal laceration during delivery (principal); Z37.0 Single live birth; O71.89 Other specified obstetric trauma; Z3A.39 39 weeks gestation of pregnancy; Z30.2 Encounter for sterilization
CPT/HCPCS: 36415; 51702; 59025; 59409; 85025; 85027; 86850; 86900; 88302; 99211; J1100; J2590; J2704; J2710; J2765; J2795; J3010; J3490; J7030